=== PATIENT | male | born 1990 | race Caucasian/White ===

== ENCOUNTER 2018-04-15 19:41 | Emergency (ER) | payer BC ==
[~2018-04-15] VITALS: Ht 172.7 cm; Wt 79.4 kg
[2018-04-15 20:08] VITALS: BP 134/68
== END 2018-04-15 21:03 | disposition home or self-care (01) ==
LOC: ER 19:41
DX: T18.128A Food in esophagus causing other injury, initial encounter (principal); X58.XXXA Exposure to other specified factors, initial encounter; Y93.9 Activity, unspecified; Y99.8 Other external cause status; Y92.89 Other specified places as the place of occurrence of the external cause
CPT/HCPCS: 70490; 71250